=== PATIENT | female | born 1990 | race Two or more races ===

== ENCOUNTER 2020-12-22 23:39 | Outpatient (CLI) | payer MEDICAID ==
[2020-12-23 01:27] LABS: MUDS CUTOFF CONCENTRATIONS CUTOFF CONC BELOW:
[2020-12-23 01:45] LABS: AMPHETAMINE SCREEN,URINE NEGATIVE (NEGATIVE); BARBITURATE SCREEN,UR NEGATIVE (NEGATIVE); BENZODIAZEPINES SCREEN, URINE NEGATIVE (NEGATIVE); COCAINE SCREEN URINE NEGATIVE (NEGATIVE); METHADONE SCREEN, URINE NEGATIVE (NEGATIVE); METHAMPHETAMINES SCREEN, URINE NEGATIVE (NEGATIVE); OPIATE SCREEN, URINE NEGATIVE (NEGATIVE); OXYCODONE SCREEN, URINE NEGATIVE (NEGATIVE); PROPOXYPHENE SCREEN, URINE NEGATIVE (NEGATIVE); THC CANNABINOID SCREEN, URINE NEGATIVE (NEGATIVE); TRICYCLIC ANTIDEPRESSANT,URINE NEGATIVE (NEGATIVE)
[2020-12-23 03:27] LABS: BACTERIAL VAGINOSIS DNA NEGATIVE (NEGATIVE); CANDIDA GLABRATA DNA NEGATIVE (NEGATIVE); CANDIDA GROUP DNA POSITIVE (NEGATIVE); CANDIDA KRUSEI DNA NEGATIVE (NEGATIVE); TRICHOMONAS VAGINALIS DNA NEGATIVE (NEGATIVE)
[2020-12-23 04:51] LABS: BILIRUBIN,URINE NEGATIVE (NEGATIVE); CLARITY,URINE CLEAR (CLEAR); GLUCOSE, URINE (UA) NEGATIVE (NEGATIVE); KETONES,URINE (UA) NEGATIVE (NEGATIVE); LEUKOCYTE ESTERASE, URINE NEGATIVE (NEGATIVE); NITRITE,URINE NEGATIVE (NEGATIVE); OCCULT BLOOD,URINE NEGATIVE (NEGATIVE); PH,URINE 6.5 PH (5.0-7.5); PROTEIN,URINE NEGATIVE (NEGATIVE); UROBILINOGEN,URINE 0.2 (NORMAL) E.U./dL (NORMAL)
[2020-12-23 05:32] VITALS: BP 103/61
--- NOTE | 2020-12-23 05:32 | PROVIDER PROGRESS NOTE ---
- HPI Chief Complaint: Other (Patient is a 30 yo at 30+1 wga here with abdominal pain. Patient is from [place] and received care elsewhere. uncomplicated. Presents with abdominal pain. IC two days ago. No falls. No LOF or VB. No nausea or vomiting. Pain is non-rhythmic.) Current : - Exam GEN: NAD HEAD: NCAT EYES: No scleral icterus or conjunctival injection CV: RRR RESP: CTAB, normal effort ABD: S&NT/ND PSYCH: appropriate affect NEURO: alert and oriented, normal gait and coordination EXT: WWP SVE closed/long/high - Procedures OB Procedure Performed: NST Diagnosis/Indication for NST: labor NST Procedure: EFM 120 mod brandon 15x15 accels no decels TOCO: quiet Service Date of procedure: 12/23/20 Procedure Details: Category I tracing Findings: UA wnl FFN neg Vaginitis panel positive for yeast GBS neg Tox screen negative Cat I tracing - Plan Plan: Patient is a 30 yo at 30+1 wga who presented with abdominal pain. LABOR EVAL: no signs of labor SVE unchanged after more than 5 hours of observation FFN neg and TVCL 3.7 cm UA wnl GBS neg GCCT negative Vaginitis panel positive for yeast FWB: Cat I tracing and quiet toco, breech, EFW 60%ile Rx for clotrimazole sent to [facility] pharmacy Warning signs reviewed FU with primary OB provider
[2020-12-23 08:18] LABS: CHLAMYDIA TRACHOMATIS DNA NEGATIVE (NEGATIVE); NEISSERIA GONORRHOEAE DNA NEGATIVE (NEGATIVE); TRICHOMONAS VAGINALIS DNA NEGATIVE (NEGATIVE)
--- NOTE | 2020-12-23 09:29 | Ultrasound Report ---
PROCEDURE: OB F/U or Repeat INDICATIONS: abdominal pain OUTSIDE/PRIOR DATING DATA: Last menstrual period (LMP): 05/26/2020, unsure LMP-based estimated date of delivery (FLORIDALMA): 03/02/2021. First dating scan (date and location): Unknown. Estimated date of delivery (FLORIDALMA) from first dating scan: Unknown. TECHNIQUE: Real-time scanning was performed of the fetus, with image documentation and biometric measurements. COMPARISON: None. FINDINGS: General: A single living intrauterine gestation is present. Presentation: Breech Placenta: Placental position is anterior, without previa. Amniotic fluid index: 14.0 cm, within normal limits for gestational age. 4.0 cm heart rate: 137 beats per minute. Maternal cervical canal: 3.7 cm long; normal length is 2.5 cm or more. biometrics: Biparietal diameter: 7.9 cm 31 weeks 4 days Head circumference: 20.4 cm 31 weeks 1 day Abdominal circumference: 26.3 cm 30 weeks 3 days Femur length: 6.0 cm 31 weeks 1 day Estimated gestational age from initial scan: not applicable. Composite gestational age from present scan: 31 weeks 1 day Estimated weight and percentile: 1639 g 60th percentile Measurement variability in biometric dating: +/- 10 days from 12-20 weeks gestation, +/- 2 weeks from 20-30 weeks gestation, +/- 3 weeks at 30 weeks gestation or more. Other: Not applicable. IMPRESSION: 1. Single live intrauterine with ultrasound gestational age today of 31 weeks 1 day. Ultras ound FLORIDALMA generated today is 02/23/2021. Previous first trimester ultrasound is not available for agustín hobson. Unverified FLORIDALMA by LMP is 03/02/2021. 2. CARLO and growth percentile are within normal limits. The above findings are concordant with preliminary report. Reviewed by: Ifeoma Means MD on 12/23/2020 9:28 AM PDT Approved by: Ifeoma Means MD on 12/23/2020 9:28 AM PDT Station ID: [id number]
== END 2020-12-23 05:20 | disposition home or self-care (01) ==
LOC: WFO 23:39 → FBP 23:41 → WFO 12-23 05:20
PROVIDERS: ATTEND Obstetrics & Gynecology
DX: O98.813 Other maternal infectious and parasitic diseases complicating pregnancy, third trimester (principal); B37.3 Candidiasis of vulva and vagina; Z3A.30 30 weeks gestation of pregnancy
CPT/HCPCS: 36415; 80306; 81001; 81003; 82731; 87086; 87491; 87591; 87661; 87797; 87801; 99212; 99213